=== PATIENT | female | born 1970 ===

== ENCOUNTER 2019-01-24 09:02 | Outpatient (CLI) | payer OTHER ==
[~2019-01-24] VITALS: Ht 175.3 cm; Wt 118.8 kg
== END 2019-01-24 09:20 | disposition home or self-care (01) ==
LOC: OFIC 805 09:02
DX: F45.8 Other somatoform disorders (principal); R13.10 Dysphagia, unspecified; R07.0 Pain in throat; R49.0 Dysphonia

== ENCOUNTER 2019-02-01 08:44 | Outpatient (CLI) | payer OTHER | END 2019-02-01 08:54 | disposition home or self-care (01) | LOC: RX STUDY 08:44 | DX: K21.0 Gastro-esophageal reflux disease with esophagitis (principal); R13.19 Other dysphagia ==